=== PATIENT | female | born 1935 | race Caucasian/White ===

== ENCOUNTER 2023-09-12 10:00 | Inpatient (IN) | payer MEDICARE ==
[~2023-09-12] VITALS: Ht 157.5 cm; Wt 59.0 kg
[2023-09-12 10:04] VITALS: BP 129/83; PULSE 72; RESP 22; TEMP 97.2; O2SAT 95
[2023-09-12 10:28] LABS: BASOPHILS % (AUTO) 0.5 % (0.0-2.0); EOSINOPHILS # (AUTO) 0.1 K/uL (0-0.4); EOSINOPHILS % (AUTO) 1.5 % (0.0-4.0); HEMATOCRIT 40.7 % (36-48); HEMOGLOBIN 13.4 g/dL (12.0-16.0); LYMPHOCYTES # (AUTO) 1.7 K/uL (2.5-16.5); LYMPHOCYTES % (AUTO) 29.7 % (20.5-51.1); MEAN CORPUSCULAR HEMOGLOBIN 30 pg (27-31); MEAN CORPUSCULAR HGB CONC 33 g/dL (33-37); MEAN CORPUSCULAR VOLUME 89.8 fL (80-94); MONOCYTES # (AUTO) 0.4 K/uL (0.8-1.0); MONOCYTES % (AUTO) 7.8 % (1.7-9.3); NEUTROPHILS # (AUTO) 3.4 K/uL (1.8-7.7); NEUTROPHILS % (AUTO) 60.5 % (42.2-75.2); PLATELET COUNT (AUTO) 200 K/uL (140-450); RED BLOOD CELL COUNT(AUTO) 4.53 MIL/uL (4.20-5.40); RED CELL DISTRIBUTION WIDTH 14.2 % (11.6-13.7); WHITE BLOOD COUNT (AUTO) 5.6 K/uL (4.8-10.8)
[2023-09-12 10:41] LABS: INR 0.99 (0.8-1.2); PARTIAL THROMBOPLASTIN TIME 24.5 secs (22-35.6); PROTHROMBIN TIME 10.4 secs (10.8-13.4)
[2023-09-12 10:42] LABS: ALANINE AMINOTRANSFERASE 22 U/L (12-78); ALBUMIN 3.4 g/dL (3.4-5.0); ALKALINE PHOSPHATASE 107 U/L (50-136); ANION GAP 12.8 (8-16); ASPARTATE AMINOTRANSFERASE 21 U/L (15-37); CALCIUM 8.7 mg/dL (8.5-10.1); CHLORIDE 106 mmol/L (98-107); CREATININE 1.1 mg/dL (0.6-1.3); GLUCOSE 137 mg/dL (74-106); POTASSIUM 3.8 mmol/L (3.5-5.1); SODIUM SERUM 141 mmol/L (136-145); TOTAL BILIRUBIN 0.5 mg/dL (0.0-1.0); UREA NITROGEN, BLOOD 16 mg/dL (7-18)
[2023-09-12] MEDS ORDERED: MORPHINE SULFATE 4 MG/ML SYR IVP PRN (12:25)
[2023-09-12] MEDS ORDERED: ONDANSETRON 4 MG/2 ML VIAL IVP PRN (12:25)
[2023-09-12] MEDS ORDERED: LORazepam 1 MG TAB PO PRN (12:25)
[2023-09-12] MEDS ORDERED: ACETAMINOPHEN 325 MG TAB PO PRN (12:25)
[2023-09-12] MEDS ORDERED: HYDROcodone/APAP 5/325 MG 1 TAB TAB PO PRN (12:25)
[2023-09-12] MEDS ORDERED: methylPREDNISolone SS 40 MG/ML VIAL IVP SCH (12:35)
[2023-09-12 13:00] VITALS: BP 145/82; PULSE 67; PULSE 70; RESP 18; TEMP 96.5; O2SAT 96; O2SAT 97
[2023-09-12] MEDS ORDERED: ALBUTEROL SULFATE/IPRATROPIU 3 ML SOL IH SCH (13:00)
[2023-09-12] MEDS ORDERED: HEPARIN PER PHARMACY MC SCH (13:06)
[2023-09-12] MEDS: FUROSEMIDE 40 MG/4 ML VIAL IVP SCH (14:29)
[2023-09-12] MEDS: hePARIN / DEXT 5% PREMIX 250 ML IV SCH (14:33)
[2023-09-12] MEDS: METOPROLOL 25 MG TAB PO SCH ×2 (14:40→20:30)
[2023-09-12 16:00] VITALS: BP 149/67; PULSE 65; PULSE 67; RESP 19; TEMP 97.8; O2SAT 96
[2023-09-12 19:56] VITALS: PULSE 73
[2023-09-12 20:00] VITALS: BP 165/68; PULSE 68; RESP 18; RESP 19; TEMP 97.1; O2SAT 100
[2023-09-13] VITALS (9 sets, daily range): BP systolic 122–186; BP diastolic 54–74; PULSE 52–69; RESP 16–19; TEMP 97.4–98.3; O2SAT 96–99
[2023-09-13 04:02] LABS: CALCIUM 8.8 mg/dL (8.5-10.1); CARBON DIOXIDE 26.5 mmol/L (21-32); CHLORIDE 102 mmol/L (98-107); CREATININE 1.2 mg/dL (0.6-1.3); GLUCOSE 146 mg/dL (74-106); POTASSIUM 3.5 mmol/L (3.5-5.1); SODIUM SERUM 138 mmol/L (136-145); UREA NITROGEN, BLOOD 26 mg/dL (7-18)
[2023-09-13 04:07] LABS: BASOPHILS % (AUTO) 0.2 % (0.0-2.0); HEMATOCRIT 38.5 % (36-48); HEMOGLOBIN 12.8 g/dL (12.0-16.0); LYMPHOCYTES # (AUTO) 1.3 K/uL (2.5-16.5); LYMPHOCYTES % (AUTO) 33.9 % (20.5-51.1); MEAN CORPUSCULAR HEMOGLOBIN 30 pg (27-31); MEAN CORPUSCULAR HGB CONC 33 g/dL (33-37); MEAN CORPUSCULAR VOLUME 88.8 fL (80-94); MONOCYTES # (AUTO) 0.2 K/uL (0.8-1.0); MONOCYTES % (AUTO) 4.2 % (1.7-9.3); NEUTROPHILS # (AUTO) 2.4 K/uL (1.8-7.7); NEUTROPHILS % (AUTO) 61.7 % (42.2-75.2); PLATELET COUNT (AUTO) 196 K/uL (140-450); RED BLOOD CELL COUNT(AUTO) 4.33 MIL/uL (4.20-5.40); RED CELL DISTRIBUTION WIDTH 14.3 % (11.6-13.7); WHITE BLOOD COUNT (AUTO) 3.9 K/uL (4.8-10.8)
[2023-09-13] MEDS: hydrALAZINE 20 MG/ML VIAL IVP PRN ×2 (04:21→22:06)
[2023-09-13] MEDS: METOPROLOL 25 MG TAB PO SCH ×2 (08:18→20:19)
[2023-09-13] MEDS: ECOTRIN 81 MG TABEC PO SCH (08:18)
[2023-09-13] MEDS: DOCUSATE SODIUM 100 MG GELCAP PO SCH (08:19)
[2023-09-13] MEDS: FUROSEMIDE 40 MG/4 ML VIAL IVP SCH (08:19)
[2023-09-13] MEDS: hePARIN / DEXT 5% PREMIX 250 ML IV SCH (08:28)
[2023-09-13] MEDS: APIXABAN 2.5 MG TAB PO SCH (20:22)
[2023-09-14] VITALS (7 sets, daily range): BP systolic 131–151; BP diastolic 50–70; PULSE 48–61; RESP 14–18; TEMP 97–98.1; O2SAT 95–100
[2023-09-14 07:25] LABS: BASOPHILS % (AUTO) 0.5 % (0.0-2.0); EOSINOPHILS # (AUTO) 0.1 K/uL (0-0.4); EOSINOPHILS % (AUTO) 1.4 % (0.0-4.0); HEMATOCRIT 38.9 % (36-48); HEMOGLOBIN 12.8 g/dL (12.0-16.0); LYMPHOCYTES # (AUTO) 2.3 K/uL (2.5-16.5); MEAN CORPUSCULAR HEMOGLOBIN 30 pg (27-31); MEAN CORPUSCULAR HGB CONC 33 g/dL (33-37); MEAN CORPUSCULAR VOLUME 89.3 fL (80-94); MONOCYTES # (AUTO) 0.7 K/uL (0.8-1.0); MONOCYTES % (AUTO) 10.8 % (1.7-9.3); NEUTROPHILS # (AUTO) 3.1 K/uL (1.8-7.7); NEUTROPHILS % (AUTO) 50.3 % (42.2-75.2); PLATELET COUNT (AUTO) 215 K/uL (140-450); RED BLOOD CELL COUNT(AUTO) 4.36 MIL/uL (4.20-5.40); RED CELL DISTRIBUTION WIDTH 14.1 % (11.6-13.7); WHITE BLOOD COUNT (AUTO) 6.1 K/uL (4.8-10.8)
[2023-09-14 07:38] LABS: ANION GAP 13.5 (8-16); CALCIUM 8.4 mg/dL (8.5-10.1); CARBON DIOXIDE 24.9 mmol/L (21-32); CHLORIDE 105 mmol/L (98-107); CREATININE 1.2 mg/dL (0.6-1.3); GLUCOSE 83 mg/dL (74-106); POTASSIUM 3.4 mmol/L (3.5-5.1); SODIUM SERUM 140 mmol/L (136-145); UREA NITROGEN, BLOOD 28 mg/dL (7-18)
[2023-09-14] MEDS ORDERED: POTASSIUM CHLORIDE 10 MEQ TABER PO PRN (08:50)
[2023-09-14] MEDS: ECOTRIN 81 MG TABEC PO SCH (09:06)
[2023-09-14] MEDS: DOCUSATE SODIUM 100 MG GELCAP PO SCH (09:06)
[2023-09-14] MEDS: FUROSEMIDE 40 MG/4 ML VIAL IVP SCH (09:06)
[2023-09-14] MEDS: METOPROLOL 25 MG TAB PO SCH (09:07)
[2023-09-14] MEDS: APIXABAN 2.5 MG TAB PO SCH (09:07)
[2023-09-14] MEDS ORDERED: METO50TE2 PO (13:49)
[2023-09-14] MEDS ORDERED: ASPI-1856 PO (13:49)
[2023-09-14] MEDS ORDERED: APIX2.5 PO (13:49)
[2023-09-15] MEDS ORDERED: METOPROLOL SUCCINATE 50 MG TABER PO SCH (09:00)
== END 2023-09-14 17:00 | disposition home or self-care (01) | DRG 280 ==
LOC: MED 10:00 → MTU 12:28
PROVIDERS: ADMIT Student in an Organized Health Care Education/Training Program; ATTEND Student in an Organized Health Care Education/Training Program
DX: I21.4 Non-ST elevation (NSTEMI) myocardial infarction (principal); I50.33 Acute on chronic diastolic (congestive) heart failure; I48.20 Chronic atrial fibrillation, unspecified; E78.5 Hyperlipidemia, unspecified; R06.01 Orthopnea; I44.7 Left bundle-branch block, unspecified; I35.0 Nonrheumatic aortic (valve) stenosis; I11.0 Hypertensive heart disease with heart failure
CPT/HCPCS: 36415; 71045; 80048; 80053; 83880; 84443; 84484; 85025; 85610; 85730; 87081; 93005; 99291; J0360; J0696; J1644; J1940; J2920; J7060; Q0092

== ENCOUNTER 2024-03-26 16:57 | Inpatient (IN) | payer MEDICARE, OTHER ==
[~2024-03-26] VITALS: Ht 157.5 cm; Wt 58.5 kg
[~2024-03-26 16:57] MED LIST: APIX2.5 PO; ASPI-1856 PO; METO50TE2 PO
[2024-03-26 17:06] VITALS: BP 168/54; PULSE 62; RESP 16; TEMP 97.5; O2SAT 96
[2024-03-26 18:10] LABS: BASOPHILS % (AUTO) 0.6 % (0.0-2.0); EOSINOPHILS # (AUTO) 0.1 K/uL (0-0.4); EOSINOPHILS % (AUTO) 1.9 % (0.0-4.0); HEMATOCRIT 36.3 % (36-48); HEMOGLOBIN 12.3 g/dL (12.0-16.0); LYMPHOCYTES # (AUTO) 2.2 K/uL (2.5-16.5); LYMPHOCYTES % (AUTO) 34.9 % (20.5-51.1); MEAN CORPUSCULAR HEMOGLOBIN 31 pg (27-31); MEAN CORPUSCULAR HGB CONC 34 g/dL (33-37); MEAN CORPUSCULAR VOLUME 90.3 fL (80-94); MONOCYTES # (AUTO) 0.6 K/uL (0.8-1.0); MONOCYTES % (AUTO) 9.5 % (1.7-9.3); NEUTROPHILS # (AUTO) 3.4 K/uL (1.8-7.7); NEUTROPHILS % (AUTO) 53.1 % (42.2-75.2); PLATELET COUNT (AUTO) 198 K/uL (140-450); RED BLOOD CELL COUNT(AUTO) 4.02 MIL/uL (4.20-5.40); RED CELL DISTRIBUTION WIDTH 14.3 % (11.6-13.7); WHITE BLOOD COUNT (AUTO) 6.4 K/uL (4.8-10.8)
[2024-03-26 18:17] LABS: CALCIUM 8.7 mg/dL (8.5-10.1); CARBON DIOXIDE 26.9 mmol/L (21-32); CHLORIDE 103 mmol/L (98-107); CREATININE 1.2 mg/dL (0.6-1.3); GLUCOSE 107 mg/dL (74-106); POTASSIUM 3.9 mmol/L (3.5-5.1); SODIUM SERUM 140 mmol/L (136-145); UREA NITROGEN, BLOOD 21 mg/dL (7-18)
[2024-03-26 19:21] VITALS: O2SAT 98
[2024-03-26] MEDS: ASPIRIN 81 MG TAB.CHEW PO ONE (19:31)
[2024-03-26] MEDS ORDERED: APIX2.5 PO (21:42)
[2024-03-26] MEDS ORDERED: METO25TE71 PO (21:42)
[2024-03-26] MEDS ORDERED: AMLO2.5T PO (21:42)
[2024-03-26] MEDS ORDERED: HYDROcodone/APAP 5/325 MG 1 TAB TAB PO PRN (21:50)
[2024-03-26] MEDS ORDERED: ACETAMINOPHEN 325 MG TAB PO PRN (21:50)
[2024-03-26] MEDS ORDERED: ONDANSETRON 4 MG/2 ML VIAL IVP PRN (21:50)
[2024-03-27] VITALS (9 sets, daily range): BP systolic 129–172; BP diastolic 52–65; PULSE 55–112; RESP 17–19; TEMP 97.3–97.9; O2SAT 96–100
[2024-03-27] MEDS: hydrALAZINE 20 MG/ML VIAL IVP PRN (00:34)
[2024-03-27 06:57] LABS: BASOPHILS % (AUTO) 0.6 % (0.0-2.0); EOSINOPHILS # (AUTO) 0.1 K/uL (0-0.4); HEMATOCRIT 39.2 % (36-48); HEMOGLOBIN 13.2 g/dL (12.0-16.0); LYMPHOCYTES # (AUTO) 2.3 K/uL (2.5-16.5); LYMPHOCYTES % (AUTO) 31.1 % (20.5-51.1); MEAN CORPUSCULAR HEMOGLOBIN 30 pg (27-31); MEAN CORPUSCULAR HGB CONC 34 g/dL (33-37); MEAN CORPUSCULAR VOLUME 90.7 fL (80-94); MONOCYTES # (AUTO) 0.8 K/uL (0.8-1.0); MONOCYTES % (AUTO) 10.5 % (1.7-9.3); NEUTROPHILS # (AUTO) 4.2 K/uL (1.8-7.7); NEUTROPHILS % (AUTO) 55.8 % (42.2-75.2); PLATELET COUNT (AUTO) 206 K/uL (140-450); RED BLOOD CELL COUNT(AUTO) 4.33 MIL/uL (4.20-5.40); RED CELL DISTRIBUTION WIDTH 14.1 % (11.6-13.7); WHITE BLOOD COUNT (AUTO) 7.5 K/uL (4.8-10.8)
[2024-03-27 07:06] LABS: ANION GAP 11.6 (8-16); CARBON DIOXIDE 28.2 mmol/L (21-32); CHLORIDE 104 mmol/L (98-107); CREATININE 0.9 mg/dL (0.6-1.3); GLUCOSE 95 mg/dL (74-106); POTASSIUM 3.8 mmol/L (3.5-5.1); SODIUM SERUM 140 mmol/L (136-145); UREA NITROGEN, BLOOD 20 mg/dL (7-18)
[2024-03-27] MEDS: ASPIRIN 81 MG TAB.CHEW PO SCH (08:59)
[2024-03-27] MEDS: amLODIPine 5 MG TAB PO SCH (08:59)
[2024-03-27] MEDS: APIXABAN 2.5 MG TAB PO SCH (09:00)
[2024-03-27] MEDS: METOPROLOL SUCCINATE 50 MG TABER PO SCH (09:01)
== END 2024-03-27 17:00 | disposition home or self-care (01) | DRG 305 ==
LOC: MED 16:57 → MTU 21:49
PROVIDERS: ADMIT Family Medicine; ATTEND Family Medicine
DX: I16.0 Hypertensive urgency (principal); R07.89 Other chest pain; M79.10 Myalgia, unspecified site; I35.0 Nonrheumatic aortic (valve) stenosis; Z20.822 Contact with and (suspected) exposure to COVID-19; I11.9 Hypertensive heart disease without heart failure; Z79.899 Other long term (current) drug therapy
CPT/HCPCS: 36415; 71045; 80048; 83735; 83880; 84484; 85025; 87081; 93005; 96374; 99285; J0360